=== PATIENT | female | born 1995 | race Caucasian/White ===

== ENCOUNTER 2016-12-31 22:09 | Emergency (ER) | payer BC, OTHER ==
[~2016-12-31] VITALS: Ht 167.6 cm; Wt 80.5 kg
[2016-12-31] MEDS ORDERED: HYDR-3363 PO (22:34)
[2016-12-31] MEDS ORDERED: PANT40TA2 PO (22:34)
[2016-12-31] MEDS ORDERED: LEXA1TAB2 PO (22:34)
[2016-12-31] MEDS ORDERED: BUPR150T5 PO (22:34)
[2016-12-31] MEDS ORDERED: PROP10TA56 PO (22:34)
[2016-12-31] MEDS ORDERED: VYVA50CA4 PO (22:34)
[2016-12-31] MEDS ORDERED: PHEN-239 PO (22:34)
[2017-01-01 00:38] VITALS: BP 134/87
== END 2017-01-01 00:39 | disposition home or self-care (01) ==
LOC: M ED 22:09 → EDBD 22:09 → M ED 01-01 00:39
DX: F41.9 Anxiety disorder, unspecified (principal); K21.9 Gastro-esophageal reflux disease without esophagitis; Z79.899 Other long term (current) drug therapy